=== PATIENT | female | born 1935 | race Caucasian/White ===

== ENCOUNTER 2018-07-22 11:06 | Emergency (ER) | payer MEDICARE ==
[~2018-07-22] VITALS: Ht 154.9 cm; Wt 72.7 kg
[~2018-07-22 11:06] MED LIST: ANTIVERT PO; ASPIRIN EC81 MG PO; CELLCEPT250 MG PO; FUROSEMIDE20 MG PO; GENGRAF25 MG PO; LEVOTHYROXIN50 MCG PO; PREDNISONE5 MG PO; RAYOS5 MG PO; ZOFRAN ODT4 MG PO
[2018-07-22 12:47] LABS: HEMATOCRIT 33.7 % (37.0-47.0); HEMOGLOBIN 10.9 g/dl (12.0-16.0); IMMATURE GRANULOCYTES 1.6 % (0.0-5.0); MEAN CORPUSCULAR HGB 28.5 pG CALC (26.0-32.0); MEAN CORPUSCULAR HGB CONC 32.3 g/L CALC (32.0-36.0); NEUT# 19.66 thou/uL (2.00-7.15); RED BLOOD COUNT 3.83 mill/uL (4.20-5.60); RED CELL DISTRI WIDTH 14.1 % (11.5-15.5)
[2018-07-22 13:09] LABS: ALBUMIN 3.5 g/dL (3.2-5.0); ANION GAP 19 (6-22 (CALC)); BUN 42 mg/dL (8-23); CARBON DIOXIDE 19 mmol/l (22-30); CHLORIDE 99 mmol/l (95-108); LIPASE 36 u/l (23-300); POTASSIUM 4.2 mmol/l (3.5-5.1); SODIUM 133 mmol/l (137-146)
[2018-07-22 13:10] LABS: ALKALINE PHOSPHATASE 167 u/l (38-126); BUN/CREATININE RATIO 16 (12-20 (CALC)); CREATININE 2.6 mg/dL (0.5-1.0); GFR 18 ML/MIN (>=60 (CALC)); GFR FOR AFR.AMER. 21 ML/MIN (>=60 (CALC)); SGOT/AST 54 u/l (9-36)
[2018-07-22 14:45] VITALS: BP 138/62
[2018-07-22 14:55] LABS: URINE BILIRUBIN - DIPSTICK NEGATIVE (NEGATIVE); URINE BLOOD DIPSTICK SMALL (NEGATIVE); URINE COLOR YELLOW; URINE GLUCOSE - DIPSTICK NEGATIVE (NEGATIVE); URINE KETONE NEGATIVE (NEGATIVE); URINE LEUK ESTERASE TRACE (NEGATIVE); URINE NITRITE - DIPSTICK NEGATIVE (Negative); URINE PH 5.5 (4.5-8.0); URINE PROTEIN - DIPSTICK TRACE mg/dL (NEG-TRACE); URINE SPECIFIC GRAVITY 1.015
[2018-07-22 15:22] LABS: URINE SQUAMOUS EPITHELIAL CELL FEW EPI/hpf (0-FEW); URINE WBC 0-2 WBC/hpf (0-5)
== END 2018-07-22 14:45 | disposition short-term general hospital (02) ==
LOC: ED 11:06
PROVIDERS: Family Medicine
DX: A41.9 Sepsis, unspecified organism (principal); R19.04 Left lower quadrant abdominal swelling, mass and lump; T86.19 Other complication of kidney transplant; N13.30 Unspecified hydronephrosis; I10 Essential (primary) hypertension; M19.90 Unspecified osteoarthritis, unspecified site; Y83.0 Surgical operation with transplant of whole organ as the cause of abnormal reaction of the patient, or of later complication, without mention of misadventure at the time of the procedure